=== PATIENT | female | born 1970 | race Caucasian/White ===

== ENCOUNTER 2016-10-18 14:42 | Emergency (ER) | payer MEDICAID ==
[~2016-10-18] VITALS: Ht 167.6 cm; Wt 82.0 kg
[~2016-10-18 14:42] MED LIST: AMLO10TA2 PO; ASPI325T PO; BENA20TA PO; CLON0.2T PO; CYCL7.5T33 PO; FENT75DI T-DERMAL; OMEP40CA2 PO
[2016-10-18 14:44] VITALS: BP 202/90; PULSE 110; RESP 14; TEMP 98.4; O2SAT 98
[2016-11-30] MEDS ORDERED: HYDR-3533 PO (09:01)
[2016-11-30] MEDS ORDERED: PERC5TAB12 PO (09:25)
== END 2016-10-18 15:29 | disposition left against medical advice (07) ==
LOC: NED 14:42
DX: N94.9 Unspecified condition associated with female genital organs and menstrual cycle (principal)
CPT/HCPCS: 99281

== ENCOUNTER 2016-12-19 06:40 | Day surgery (SDC) | payer MEDICAID ==
[~2016-12-19] VITALS: Ht 167.6 cm; Wt 79.5 kg
[~2016-12-19 06:40] MED LIST changes: -ASPI325T PO; +HYDR-3533 PO; +PERC5TAB12 PO
[2016-12-19 06:57] VITALS: BP 160/103; PULSE 88; RESP 20; TEMP 98.4; O2SAT 90
[2016-12-19] MEDS ORDERED: ZETI10TA5 PO (06:59)
[2016-12-19] MEDS ORDERED: MESA400C2 PO (07:00)
[2016-12-19] MEDS ORDERED: GABA300C5 PO (07:01)
[2016-12-19] MEDS ORDERED: CLON0.2T PO (07:03)
[2016-12-19] MEDS ORDERED: fentaNYL CITRATE 250 MCG/5 ML AMP ONE (09:01)
[2016-12-19] MEDS ORDERED: MIDAZOLAM HCL 5 MG/5 ML VIAL ONE (09:01)
--- NOTE | 2016-12-19 09:46 | PD.RAD ---
Post Procedure Progress Note Pre Procedure Diagnosis: (1) Gastroparesis Post Procedure Diagnosis: (1) Gastroparesis Procedure Date: Dec 19, 2016 Supervising Radiologist: Nate Juarez Anesthesia: Conscious Sedation Plan of Activity Patient to Unit: ROPU Patient Condition: Good See PACS Report for procedural detail/treatment Feeding Tube Gastro/Jejunostomy Conversion [place]: 22 Nate Juarez MD Dec 19, 2016 09:46
[2016-12-19 09:59] VITALS: BP 119/71; PULSE 84; RESP 16; TEMP 97.9; O2SAT 93
[2016-12-19 10:29] VITALS: BP 116/76; PULSE 78; RESP 18; O2SAT 94
--- NOTE | 2016-12-19 10:47 | RADRPT ---
EXAM DATE/TIME: 12/19/2016 09:10 [place] COMPARISON: No previous studies available for comparison. INDICATIONS : Patient is in need of a conversion of existing gastrostomy tube to G-J tube. MEDICAL HISTORY : History of gastroparsis, hiatatl hernia, gastritis, esophagitis, colitis, pyelonephritis, hemorrhagic cystitis, rectal bleeding, hepatomegaly, cardiomegaly, HTN, hyperlipidem ia, fibromyalgia. SURGICAL HISTORY : History of EGD, colonoscopy, cholecystectomy, hyterectomy, sigmoidectomy. ENCOUNTER: Initial ACUITY: > 1 year PAIN SCORE: 0/10 FLUORO TIME: 1.6 minutes IMAGE SERIES: 4 SEDATION TIME: 30 minutes CONTRAST: 12 cc Omnipaque (iohexol) 350 MEDICATION(S): 1.) 4 mg midazolam (Versed) IV 2.) 200 mcg Fentanyl (Sublimaze) IV DEVICE(S): 1.) 22 Fr Transgastric tube PROCEDURE: 1. Fluoroscopically guided gastrostomy to gastrojejunostomy conversion 2. Conscious sedation with continuous EKG and oximetry monitoring. TECHNIQUE: Under sterile conditions and using aseptic technique a guidewire was passed through the previous daniella rostomy tube and the wire was manipulated into the small bowel. The prescribed gastrojejunostomy tube was placed over the guidewire. The balloon was inflated with appropriate volume of saline. Injection of positive contrast demonstrates good position of the gastric and jejunal sections of the tube. Conscious sedation was performed with the prescribed dosages and duration as above in the presence of an independent trained radiology nurse to assist in the monitoring of the patient. EKG and oximetry remained stable throughout the procedure. CONCLUSION: Gastrostomy tube conversion to gastrojejunostomy tube completed without complication. Nate Juarez MD on December 19, 2016 at 10:44 Board Certified Radiologist. This report was verified electronically.
[2016-12-19 10:59] VITALS: BP 111/75; PULSE 75; RESP 19; O2SAT 97
[2016-12-19 11:59] VITALS: BP 137/82; PULSE 85; RESP 18; O2SAT 98
== END 2016-12-19 12:10 | disposition home or self-care (01) ==
LOC: HROP 06:40 → HRIP 06:42 → HROP 12:10
PROVIDERS: ATTEND Internal Medicine Gastroenterology
DX: K94.20 Gastrostomy complication, unspecified (principal); K31.84 Gastroparesis; I10 Essential (primary) hypertension; E78.5 Hyperlipidemia, unspecified; M79.7 Fibromyalgia
CPT/HCPCS: 49446; 99152; 99153; C1769; C1874; C1887; J2250; J3010